=== PATIENT | female | born 1995 | race Caucasian/White ===

== ENCOUNTER 2016-12-31 18:04 | Emergency (ER) | payer OTHER ==
[~2016-12-31] VITALS: Ht 170.2 cm; Wt 56.8 kg
[2016-12-31 18:10] VITALS: BP 131/92; PULSE 67; RESP 22; O2SAT 99
[2016-12-31] MEDS ORDERED: 0.9% Sodium Chloride 1,000 ML IV ONE (18:58)
[2016-12-31] MEDS ORDERED: Ondansetron 2 mg/mL 2 mL Inj IVPUSH PRN (19:00)
--- NOTE | 2016-12-31 19:03 | ED.REPORT ---
HPI-General Illness Date of Service Dec 31, 2016 ED Provider: Julián Salas MD The patient is a 21 year old female with history of Crohn's disease s/p ileostomy, who presents to the emergency department complaining of abdominal pain. She was recently at [facility] and diagnosed with a possible small intestine blockage but left AMA because she was "unhappy with the medical care". She has experienced nausea, decreased appetite, vomiting, decreased ostomy output, and bilateral ankle swelling. She says she has not been able to tolerate PO for 3 days. Her symptoms are similar to previous Crohn's flare. She is not currently taking any medication for her Crohn's. Gastroenterology from : Dr. Oswald Paez Nursing Notes Stated Complaint: POSS SMALL BOWEL OBSTRUCTION, CHRONS Chief Complaint: Female Abdominal Pain Nursing Notes Reviewed: Yes Allergies: Coded Allergies: MUSHROOM (Verified Allergy, Severe, anaphylaxis, 12/31/16) latex (Verified Allergy, Severe, hives, 12/31/16) Uncoded Allergies: REMICAIDE (Allergy, Severe, 12/31/16) Scheduled PRN Ondansetron ODT (Zofran ODT) 4 Mg Tablet 4 MG PO Q4H PRN PRN For Nausea General Time Seen by MD: 18:58 Chief Complaint Abdominal pain Hx Obtained From: Patient Arrived By: Walk-in Sudden in Onset?: No Onset Occurred: 4 days ago Symptom Duration: Since onset Location: : Abdomen Quality: Painful Severity: Current: Moderate Severity: Maximum: Severe Recent Healthcare: No recent hospitalization, Recent doctor visit Past Medical History Past Medical History Notes: Area Counselor: Dr. Oswald Paez from Past Medical History Crohn's disease Past Surgical History Ileostomy Family History Noncontributory Social History Other Social History: Good social support, Local resident Ambulatory Status Independent Review of Systems Full Review of Systems GI: Reports: Abdominal pain, Anorexia, Constipation, Nausea, Vomiting Musculoskeletal: Reports: Extremity swelling, Joint swelling Complete sys rev & neg: except as marked. Physical Exam Vital Signs Vital Signs Date Time Temp Pulse Resp B/P Pulse Ox O2 Delivery O2 Flow Rate FiO2 12/31/16 22:18 36.6 119/84 97 Room Air 12/31/16 20:34 36.7 59 141/88 97 Room Air 12/31/16 18:10 35.9 67 22 131/92 99 Room Air Initial VS: Reviewed Head / Eyes: Atraumatic, Normocephalic, PERRL Neck: Supple, Non-tender, Full range of motion Respiratory: Breath sounds normal, Clear to auscultation, No respiratory distress Cardiovascular: Regular rate & rhythm, Heart sounds normal, Intact distal pulses Lymphatic: No lymphadenopathy Extremities: Vascular intact, Neuro intact Skin: Warm, Dry, No cyanosis Neurologic: Alert, Oriented, Nonfocal Psychiatric: Mood/affect normal, Behavior normal, Normal thought content General/Constitutional: Awake, Alert, Cooperative Behavior: Positive: Agitated, Tearful ENT: Airway patent Mouth: Positive: Mucous membranes dry Abdomen: Soft, No guarding, No rebound, No distention, No hernia, No palpable mass, No pulsatile mass Bowel Sounds / Distention: Positive: Bowel sounds hypoactive There is an ostomy bag in place to her RLQ, there is no surrounding redness, warmth, or swelling. She tolerates form palpation in all 4 quadrants. She didn't act like it was tender however she reported it was tender. Interpretation & Diagnostics Lab Results Interpretation Result Diagram: 12/31/16193612/31/161936 Test 12/31/16 19:37 12/31/16 21:13 White Blood Count 11.2th/mm3 (3.8-10.1) Red Blood Count 5.02mil/mm3 (3.90-5.20) Hemoglobin 14.0g/dL (12.0-15.6) Hematocrit 42.0% (35.0-46.0) Mean Corpuscular Volume 83.7fL (81-100) Mean Corpuscular Hemoglobin 27.9pg (27.0-35.0) Mean Corpuscular Hemoglobin Concent 33.3% (32.0-37.0) Red Cell Distribution Width 15.6% (12.3-15.4) Platelet Count 248bil/L (150-400) Neutrophils (%) (Auto) 70.9% (40-74) Lymphocytes (%) (Auto) 19.0% (14-46) Monocytes (%) (Auto) 9.1% (4-12) Eosinophils (%) (Auto) 0.6% (0-5) Basophils (%) (Auto) 0.3% (0-3) Sodium Level 139mEq/L (134-144) Potassium Level 4.0mEq/L (3.5-5.2) Chloride Level 103mEq/L (97-108) Carbon Dioxide Level 22mmol/L (18-29) Blood Urea Nitrogen 7mg/dL (6-20) Creatinine 0.60mg/dL (0.57-1.00) Estimat Glomerular Filtration Rate 179mL/min (>59) Glucose Level 94mg/dL (60-99) Calcium Level 9.6mg/dL (8.5-10.1) Magnesium Level 1.8mg/dL (1.6-2.6) Total Bilirubin 0.4mg/dL (0.0-1.2) Aspartate Amino Transf (AST/SGOT) 18U/L (0-50) Alanine Aminotransferase (ALT/SGPT) 16U/L (0-32) Alkaline Phosphatase 148U/L (25-150) Total Protein 8.2g/dL (6.4-8.4) Albumin 4.2g/dL (3.4-5.0) Lipase 11U/L (13-60) Human Chorionic Gonadotropin, Qual Negative (Negative) Hold Bradford Top Tube Received (Received) Hold Urine Received (Received) CT Abd / Pelvis Interpretation IMPRESSION: No mural thickening involving bowel is seen, there is a small amount of free fluid deep within the pelvis. The uterus is not visualized as a normal structure in this young patient, and the ovaries bilaterally could not be identified. Please correlate clinically for whether prior hysterectomy/oophorectomy has been performed. No sign of intestinal obstruction or perforation. Right lower quadrant ostomy site appears normal. Dictated by: Ruben Charles M.D. on 12/31/2016 at 21:21 Study type: Abdominal CT IV contrast Interpretation / Wet Read by: Interpret - Radiologist Re-Eval/Medical Decision Med Decision/Clinical Course The patient is a 21 year old female with history of Crohn's disease s/p ileostomy, who presents to the emergency department complaining of abdominal pain. She was recently at [facility] and diagnosed with a possible small intestine blockage but left AMA because she was "unhappy with the medical care". She has experienced nausea, decreased appetite, vomiting, decreased ostomy output, and bilateral ankle swelling. She says she has not been able to tolerate PO for 3 days. Her symptoms are similar to previous Crohn's flare. She is not currently taking any medication for her Crohn's. Gastroenterology from : Dr. Oswald Paez Upon arrival in the emergency department she is quite tearful and does not appear particularly dehydrated. She reports diffuse abdominal tenderness with palpation though she is quite distractible and allows me to press firmly in all 4 quadrants without any objective signs of pain. Reviewed the patient's visit from [facility] from earlier today. It took many hours to obtain these records and we had subsequently obtained a CT scan prior to knowing she had a CT at [facility]. The CT at that time was read as equivocal for bowel obstruction. Lab studies from earlier today demonstrate leukocytosis of 15, hct 45, otherwise relatively unremarkable. She had a total of 6 mg IV Dilaudid during this visit then became angry at ER staff and eloped from the emergency department cursing at ER staff. Today during this visit her abdominal CT scan is relatively normal. See above. LABS: leukocytosis of 11.2, CBC otherwise unremarkable, CMP unremarkable, HCG negative Urine dip: positive leukocytes, positive blood, negative nitrites. She was treated with IV fluids and antiemetics here in the emergency department. She was able to tolerate PO. Serial abdominal examinations remained benign. At this time, I see no evidence of small bowel obstruction, signs of significant Crohn's flare or acute surgical intra-abdominal process. Patient is now better and remains with stable vital signs. I feel that she is appropriate for discharge home. She will call tomorrow to arrange for follow- up with her GI doctor. Prior to discharge follow-up and return precautions were reviewed in detail with the patient who verbalized understanding and agreement with the plan. The patient was discharged in stable condition. Source of Hx: Old records Time of Eval: 21:56 Re-Evaluation/Progress Note: Rechecked the patient. Discussed results, diagnosis, and plan for discharge. All questions were addressed. Counseled Regarding: Diagnosis, Lab results, Need for follow-up, When/why to return to ED Discharge & Departure Primary Impression: Abdominal pain Abdominal location: generalized Qualified Code: R10.84 - Generalized abdominal pain Additional Impressions: Crohns disease Gastrointestinal tract location: unspecified location Digestive disease complication type: unspecified complication Qualified Code: K50.919 - Crohn' s disease, unspecified, with unspecified complications Nausea and vomiting Vomiting type: unspecified Vomiting Intractability: unspecified Qualified Code: R11.2 - Nausea with vomiting, unspecified Dehydration History of creation of ostomy Disposition: Home Discharge Condition All VS Reviewed: Yes Condition: Stable Additional Instructions: Thank you for seeking care at the emergency room. Our primary goal today in the ED was to evaluate you for any life-threatening conditions. Your evaluation was reassuring. There is no evidence of a bowel obstruction at this time. You will be discharged with a prescription for nausea medication. Try to rest and drink fluids slowly. You should follow-up with your primary doctor and/or elastic attacher zigzag in the next week. You should return to the ED immediately if you develop increased pain, fevers, uncontrollable vomiting, inability to keep down fluids or any other concerning signs or symptoms. Thank you for letting us partake in your care today. [employer] Attestation Portions of this note were transcribed by Concepción Khan. I, Dr. Salas personally performed the history, physical exam and medical decision-making; I reviewed and confirmed the accuracy of the information in the transcribed note. Signed by: Cameron Rivera, 12/31/2016 at 2220. Julián Salas MD Dec 31, 2016 19:03 Concepción Khan Dec 31, 2016 19:07
[2016-12-31] MEDS: HYDROmorphone 0.5 mg/0.5 mL iSecure Syringe IVPUSH PRN ×3 (19:40→21:33)
[2016-12-31 19:47] LABS: BASOPHILS % (AUTO) 0.3 % (0-3); EOSINOPHILS % (AUTO) 0.6 % (0-5); MONOCYTES % (AUTO) 9.1 % (4-12); Mean Corpuscular Hemoglobin 27.9 pg (27.0-35.0); Mean Corpuscular Volume 83.7 fL (81-100); NEUTROPHILS % (AUTO) 70.9 % (40-74); Platelet Count 248 bil/L (150-400)
[2016-12-31 20:23] LABS: Lipase 11 U/L (13-60); Magnesium 1.8 mg/dL (1.6-2.6)
[2016-12-31 20:34] VITALS: BP 141/88; PULSE 59; O2SAT 97
--- NOTE | 2016-12-31 21:26 | DRSVH ---
PROCEDURE: CT ABDOMEN AND PELVIS WITH CONTRAST ([id number]) INDICATIONS: abd pain, crohns, vomiting TECHNIQUE: After the administration of intravenous contrast, 5 mm thick sections acquired from the diaphragm to the symphysis. 5 mm coronal and sagittal reformats were acquired. For radiation dose reduction, the following was used: automated exposure control, adjustment of mA and/or kV according to patient siz e. COMPARISON: None. FINDINGS: Image quality: Excellent. ABDOMEN: Lung bases: Lung bases are clear. Heart size is normal. Solid organs: Liver and spleen are normal in size and enhancement. Gallbladder appears normal. Jules iary system is non dilated. Pancreas enhances normally. No adrenal nodules. Kidneys demonstrate no rmal size and enhancement, without hydronephrosis. Peritoneum and bowel: Bowel loops demonstrate normal wall thickness and caliber. No free fluid or a ir. Nodes and vessels: No retroperitoneal or mesenteric adenopathy by size criteria. Aorta and inferior vena cava are normal in size. Miscellaneous: No ventral hernias. PELVIS: Genitourinary: Bladder wall thickness is normal. The uterus is not visualized, possibly due to prio r hysterectomy. A small amount of free fluid is seen deep within the cul-de-sac, and ovaries bilater ally are not clearly visualized as discrete structures. Miscellaneous: No inguinal hernias or adenopathy. Right lower quadrant ostomy site. Bones: No suspicious bony lesions. No vertebral body compression fractures. IMPRESSION: No mural thickening involving bowel is seen, there is a small amount of free fluid deep within the pelvis. The uterus is not visualized as a normal structure in this young patient, and the ovaries bilaterally could not be identified. Please correlate clinically for whether prior hysterec jenifer/oophorectomy has been performed. No sign of intestinal obstruction or perforation. Right lower quadrant ostomy site appears normal. Dictated by: Ruben Charles M.D. on 12/31/2016 at 21:21 Approved by: Ruben Charles M.D. on 12/31/2016 at 21:24
[2016-12-31] MEDS ORDERED: ONDA4TAB9 PO (21:57)
[2016-12-31 22:18] VITALS: BP 119/84; O2SAT 97
== END 2016-12-31 22:19 | disposition home or self-care (01) ==
LOC: SED 18:04
DX: R10.84 Generalized abdominal pain (principal); K50.919 Crohn's disease, unspecified, with unspecified complications; E86.0 Dehydration; M25.471 Effusion, right ankle; M25.472 Effusion, left ankle; Z93.2 Ileostomy status; Z91.040 Latex allergy status; Z91.018 Allergy to other foods
CPT/HCPCS: 36415; 74177; 80053; 83690; 83735; 84703; 85025; 96374; 96375; 96376; 99285; J1170; J2405; J7030; Q9967